=== PATIENT | male | born 1955 | race Caucasian/White ===

== ENCOUNTER 2018-04-26 07:25 | Inpatient (IN) | payer OTHER ==
[~2018-04-26] VITALS: Ht 182.9 cm; Wt 98.0 kg
[2018-04-26 07:25] VITALS: BP_SYST 105
[2018-04-26] MEDS ORDERED: NACL 0.9% 1,000 ML IV ONE (07:30)
[2018-04-26 07:58] LABS: BASOPHILS # (AUTO) 0.1 K/uL (0.0-0.2); BASOPHILS % (AUTO) 0.8 % (0.0-2.0); EOSINOPHILS # (AUTO) 0.2 K/uL (0.0-0.4); EOSINOPHILS % (AUTO) 2.9 % (0.0-4.0); HEMATOCRIT 30.5 % (36-54); HEMOGLOBIN 10.1 g/dL (14.0-18.0); LYMPHOCYTES # (AUTO) 1.1 K/uL (1.0-5.5); LYMPHOCYTES % (AUTO) 16.6 % (20.5-51.5); MEAN CORPUSCULAR HEMOGLOBIN 31 pg (27-31); MEAN CORPUSCULAR HGB CONC 33 % (32-36); MEAN CORPUSCULAR VOLUME 93 fL (79.0-98.0); MONOCYTES # (AUTO) 0.3 K/uL (0.0-1.0); NEUTROPHILS % (AUTO) 74.7 % (40.0-70.0); PLATELET COUNT (AUTO) 149 K/uL (130-430); WHITE BLOOD COUNT (AUTO) 6.7 K/uL (4.8-10.8)
[2018-04-26 08:05] LABS: ANION GAP 6 (5-15); CALCIUM 8.7 mg/dL (8.4-11.0); CHLORIDE 106 mmol/L (98-107); CREATININE 1.12 mg/dL (0.55-1.30); GLUCOSE 136 mg/dL (70-99); POTASSIUM 3.9 mmol/L (3.5-5.1); SODIUM SERUM 140 mmol/L (136-145); UREA NITROGEN, BLOOD 17 mg/dL (8-21)
[2018-04-26 08:08] LABS: GFR AFRICAN AMERICAN 85 mL/min (>90); PROTHROMBIN TIME 9.9 SECS (9.5-12.5)
[2018-04-26 08:11] LABS: ACETAMINOPHEN 9 ug/mL (1-30); ALANINE AMINOTRANSFERASE 14 U/L (12-78); ALBUMIN 3.2 g/dL (3.4-4.8); ASPARTATE AMINOTRANSFERASE 18 U/L (10-37); TOTAL BILIRUBIN 0.3 mg/dL (0.0-1.0)
[2018-04-26 08:13] LABS: ALCOHOL, BLOOD < 3 mg/dL (<10)
[2018-04-26] MEDS ORDERED: NALOXONE HCL 0.4 MG/ML AMP (NARCAN) IVP ONE (09:15)
[2018-04-26 09:42] LABS: BILIRUBIN,URINE NEGATIVE (NEGATIVE); BLOOD, URINE NEGATIVE (NEGATIVE); CLARITY/URINE CLEAR (CLEAR); COLOR,URINE YELLOW (YELLOW); GLUCOSE,URINE NEGATIVE (NEGATIVE); KETONES,URINE NEGATIVE (NEGATIVE); LEUKOCYTE ESTERASE ,URINE NEGATIVE (NEGATIVE); NITRITE, URINE NEGATIVE (NEGATIVE); PH,URINE 5.5 (5.0-8.0); PROTEIN URINE NEGATIVE (NEGATIVE); UROBILINOGEN,URINE 0.2 (0.2-1.0)
[2018-04-26] MEDS ORDERED: LISI-600 PO (09:42)
[2018-04-26] MEDS ORDERED: ALPR1TAB2 PO (09:42)
[2018-04-26] MEDS ORDERED: ASPI-1155 PO (09:42)
[2018-04-26] MEDS ORDERED: HYDR-3925 PO (09:42)
[2018-04-26] MEDS ORDERED: METO-442 PO (09:42)
[2018-04-26] MEDS ORDERED: LOVA40TA75 PO (09:42)
[2018-04-26] MEDS ORDERED: ALBMDI INH (09:42)
[2018-04-26] MEDS ORDERED: PRO20 PO (09:42)
[2018-04-26 09:56] LABS: BENZODIAZEPINE, URINE POSITIVE (NEG <=150); CANNABINOID, URINE POSITIVE (NEG <=50); OPIATE, URINE POSITIVE (NEG <=100); URINE OXYCODONE SCREEN POSITIVE (NEG <=100)
[2018-04-26 09:57] LABS: BARBITURATE, URINE NEGATIVE (NEG <=200); COCAINE, URINE NEGATIVE (NEG <=150); METHAMPHETAMINES SCREEN,URINE NEGATIVE (NEG <=500); PHENCYCLIDINE SCREEN,URINE NEGATIVE (NEG <=25); UR TRICYCLIC ANTIDEPRESSANTS NEGATIVE (NEG <=300); URINE AMPHETAMINE NEGATIVE (NEG <=500); URINE METHADONE NEGATIVE (NEG <=200); URINE PROPOXYPHENE SCREEN NEGATIVE (NEG <=300)
[2018-04-26 11:20] VITALS: BP_SYST 120
[2018-04-26 12:02] VITALS: BP_SYST 120
[2018-04-26] MEDS ORDERED: ALBUTEROL SULFATE 0.083% 2.5 MG/3 ML VIAL.NEB INH PRN (14:45)
[2018-04-26] MEDS ORDERED: IPRATROPIUM BROM 0.5 MG/2.5 ML VIAL.NEB (ATROVENT) INH PRN (14:45)
[2018-04-26] MEDS: IPRATROPIUM BROM 0.5 MG/2.5 ML VIAL.NEB (ATROVENT) INH SCH ×3 (15:00→22:55)
[2018-04-26] MEDS: ALBUTEROL SULFATE 0.083% 2.5 MG/3 ML VIAL.NEB INH SCH ×3 (15:00→22:55)
[2018-04-26 15:23] VITALS: BP_SYST 120
[2018-04-26 16:02] VITALS: BP_SYST 132
[2018-04-26 20:00] VITALS: BP_SYST 113
[2018-04-26] MEDS: METOPROLOL TARTRATE 50 MG TABLET PO SCH (21:59)
[2018-04-27] VITALS (7 sets, daily range): BP systolic 124–153
[2018-04-27] MEDS: ALBUTEROL SULFATE 0.083% 2.5 MG/3 ML VIAL.NEB INH SCH ×6 (03:13→23:00)
[2018-04-27] MEDS: IPRATROPIUM BROM 0.5 MG/2.5 ML VIAL.NEB (ATROVENT) INH SCH ×6 (03:13→23:00)
[2018-04-27] MEDS: LISINOPRIL 20 MG TABLET PO SCH (08:59)
[2018-04-27] MEDS: METOPROLOL TARTRATE 50 MG TABLET PO SCH ×2 (08:59→21:40)
[2018-04-27] MEDS: ASPIRIN 81 MG TAB.CHEW PO SCH (08:59)
[2018-04-27] MEDS: FLUoxetine HCL 20 MG CAPSULE (PROzac) PO SCH (09:00)
[2018-04-27] MEDS ORDERED: LORazepam 2 MG/ML VIAL IVP ONE (11:15)
[2018-04-27] MEDS: SIMVASTATIN 20 MG TABLET PO SCH (17:08)
[2018-04-27] MEDS: MORPHINE 2 MG/ML INJ. SYRINGE IVP PRN ×2 (17:09→21:40)
[2018-04-28 01:52] LABS: LACTATE DEHYDROGENASE 165 U/L (85-227); THYROID STIMULATING HORMONE 0.64 uIu/mL (0.36-3.74)
[2018-04-28] MEDS: MORPHINE 2 MG/ML INJ. SYRINGE IVP PRN ×4 (01:52→15:35)
[2018-04-28] MEDS: IPRATROPIUM BROM 0.5 MG/2.5 ML VIAL.NEB (ATROVENT) INH SCH ×4 (03:00→15:00)
[2018-04-28] MEDS: ALBUTEROL SULFATE 0.083% 2.5 MG/3 ML VIAL.NEB INH SCH ×4 (03:00→15:00)
[2018-04-28 08:12] VITALS: BP_SYST 153
[2018-04-28 08:12] LABS: TOTAL IRON BIND. CAPACITY 276 ug/dL (250-450)
[2018-04-28] MEDS: ASPIRIN 81 MG TAB.CHEW PO SCH (08:21)
[2018-04-28] MEDS: METOPROLOL TARTRATE 50 MG TABLET PO SCH (08:22)
[2018-04-28] MEDS: LISINOPRIL 20 MG TABLET PO SCH (08:22)
[2018-04-28] MEDS: FLUoxetine HCL 20 MG CAPSULE (PROzac) PO SCH (08:23)
[2018-04-28 11:30] VITALS: BP_SYST 140
[2018-04-28 15:37] VITALS: BP_SYST 124
[2018-04-28 17:08] VITALS: BP_SYST 124
[2018-04-28] MEDS: SIMVASTATIN 20 MG TABLET PO SCH (17:52)
[2018-04-29 07:05] LABS: FOLATE (FOLIC ACID) 12.1 ng/mL (>3.0)
== END 2018-04-28 18:50 | disposition home or self-care (01) | DRG 917 ==
LOC: SED 07:25 → SMU 10:19 → STU 11:02
PROVIDERS: ADMIT Internal Medicine Hospice and Palliative Medicine; ATTEND Internal Medicine Hospice and Palliative Medicine
DX: T40.601A Poisoning by unspecified narcotics, accidental (unintentional), initial encounter (principal); G92 Toxic encephalopathy; E87.2 Acidosis; G89.29 Other chronic pain; M54.16 Radiculopathy, lumbar region; J44.9 Chronic obstructive pulmonary disease, unspecified; R07.89 Other chest pain; G47.33 Obstructive sleep apnea (adult) (pediatric); M54.9 Dorsalgia, unspecified; E78.5 Hyperlipidemia, unspecified; F32.9 Major depressive disorder, single episode, unspecified; I10 Essential (primary) hypertension; M79.605 Pain in left leg; Z88.0 Allergy status to penicillin; Z88.8 Allergy status to other drugs, medicaments and biological substances; Z88.1 Allergy status to other antibiotic agents; Z79.82 Long term (current) use of aspirin; Z79.899 Other long term (current) drug therapy; Z86.73 Personal history of transient ischemic attack (TIA), and cerebral infarction without residual deficits; Z82.49 Family history of ischemic heart disease and other diseases of the circulatory system; Y92.89 Other specified places as the place of occurrence of the external cause
CPT/HCPCS: 36415; 36600; 71045; 72148; 80053; 80307; 81003; 82607; 82728; 82746; 82803-TC; 83540-TC; 83550-TC; 83605; 83615-TC; 84443-TC; 84484; 85025; 85610-TC; 85730-TC; 87040-TC; 87086; 93005; 93306; 94640; 94760; 96361; 96374; 96375; 99285; G0480; G0481; G0482; J2060; J2270; J2310; J7613

== ENCOUNTER 2021-12-08 20:36 | Inpatient (IN) | payer OTHER ==
[~2021-12-08] VITALS: Ht 182.9 cm; Wt 84.1 kg
[~2021-12-08 20:36] MED LIST: ALBMDI INH; ALPR1TAB2 PO; ASPI-1155 PO; HYDR-3925 PO; LISI20TA30 PO; LOVA40TA75 PO; METO-442 PO; PRO20 PO
--- NOTE | 2021-12-08 20:36 | NUR ---
PT BIBA LAST KNOWN 1899 PT NOTICED EXPRESSIVE APHASIA AND BLURRED VISION,BUT ARRIVAL ON SEEN NO DEFICIT NOTED, ON ARRIVAL TO ER NO NEURO DEFICIT, BUT MILD FACIAL DROOP ON LT SIDE WHEN HE SMILE AND TOUGUE DEVIATED AT LT SIDE MILDLY, DOUBLE VISION ON RT SIDE.PLACED ON RM3 VSS, AFEBRILE,ENDORSE TO JUSTIN LADD FOR CONTINUITY OF CARE.
[2021-12-08 20:50] VITALS: BP_SYST 148
--- NOTE | 2021-12-08 20:50 | NUR ---
PT BIBA TO ER, WITH COMPLAINTS OF SLURED SPEECH. PT SPOKE TO SOON APX AT 1910 AND SON NOTICED THAT HE WAS NOT SPEAKING HIS USUAL SELF. VS ARE WITHIN NORMAL LIMITS. PT IS IN BED SPEAKING TO NEURO DR VIA MONITOR, BED IS LOWERED, LOCKED AND RAILS UP. WILL CONTINUE TO MONITOR
--- NOTE | 2021-12-08 20:54 | NUR ---
PT TAKEN TO CT
[2021-12-08] MEDS ORDERED: iohexoL 240 mgI/mL, 150 ML INFUS..BTL IV ONE (20:56)
[2021-12-08 21:27] LABS: BASOPHILS # (AUTO) 0.1 K/uL (0.0-0.2); BASOPHILS % (AUTO) 1.2 % (0.0-2.0); EOSINOPHILS # (AUTO) 0.1 K/uL (0.0-0.4); EOSINOPHILS % (AUTO) 2.9 % (0.0-4.0); HEMATOCRIT 39.9 % (36-54); HEMOGLOBIN 13.8 g/dL (14.0-18.0); LYMPHOCYTES # (AUTO) 1.8 K/uL (1.0-5.5); MEAN CORPUSCULAR HEMOGLOBIN 31 pg (27-31); MEAN CORPUSCULAR HGB CONC 35 % (32-36); MEAN CORPUSCULAR VOLUME 89 fL (79.0-98.0); MONOCYTES # (AUTO) 0.4 K/uL (0.0-1.0); MONOCYTES % (AUTO) 8.4 % (1.7-9.3); NEUTROPHILS # (AUTO) 2.6 K/uL (1.8-7.7); NEUTROPHILS % (AUTO) 51.5 % (40.0-70.0); PLATELET COUNT (AUTO) 180 K/uL (130-430); RED BLOOD CELL COUNT(AUTO) 4.47 MIL/uL (4.2-6.2); RED CELL DISTRIBUTION WIDTH 14.4 % (9.0-15.0)
[2021-12-08 21:34] LABS: ANION GAP 9 (5-15); CALCIUM 9.2 mg/dL (8.4-11.0); CHLORIDE 104 mmol/L (98-107); CREATININE 1.22 mg/dL (0.55-1.30); GLUCOSE 133 mg/dL (70-99); SODIUM SERUM 140 mmol/L (136-145); UREA NITROGEN, BLOOD 14 mg/dL (8-21)
[2021-12-08 21:35] LABS: GFR AFRICAN AMERICAN 76 mL/min (>90)
[2021-12-08 21:36] LABS: PROTHROMBIN TIME 10.4 SECS (9.5-12.5)
[2021-12-08 21:42] LABS: ALANINE AMINOTRANSFERASE 18 U/L (12-78); ALBUMIN 3.9 g/dL (3.4-4.8); ASPARTATE AMINOTRANSFERASE 22 U/L (10-37); TOTAL BILIRUBIN 0.5 mg/dL (0.0-1.0)
[2021-12-08] MEDS ORDERED: POTASSIUM CHLORIDE 20 MEQ TAB.PRT.SR PO ONE (21:45)
[2021-12-08] MEDS ORDERED: ASPIRIN 81 MG TAB.CHEW PO ONE (21:45)
[2021-12-08] MEDS ORDERED: ASPIRIN 81 MG TAB.CHEW ONE (21:50)
[2021-12-08] MEDS ORDERED: MORPHINE 4 MG INJ. 4 MG/ML VIAL IVP ONE (22:00)
[2021-12-08] MEDS ORDERED: ONDANSETRON HCL 4 MG/2 ML VIAL IVP ONE (22:00)
--- NOTE | 2021-12-08 23:14 | NUR ---
Admit bed requested Patient will be admitted to care of . Admitted to TELEMETRY unit. Diagnosis [TIA] Inpatient (Yes or No) [YES] Observation (Yes or No) [YES] Orientation concerns or request close to nursing station (Yes or No) [NO] Covid Status [YES] On vent or bipap [NO] Isolation requirements [NO] Needs a sitter [NO] From Home (Yes or if No enter name of facility) [NO] Requires Dialysis (Yes or No) [NO] Med Rec Completed (Yes of No) [NO]
--- NOTE | 2021-12-09 01:38 | NUR ---
CALLED TO GIVE REPORT TO TELE PER HOUSE LAN OSMAN TO DO. WAS ADVICED THAT NURSE WHO WILL TAKE MR [place] WILL CALL ME BACK TO GET REPORT
--- NOTE | 2021-12-09 01:38 | NUR ---
Patient will be admitted to care of DR MOSQUERA. Admitted to unit. Will go to room . Belongings list completed. Complete and up to date summary report printed. SBAR report given to Ken ANDERSON via telephone approved to do so by packing house supervisor Charly ANDERSON with opportunity for questions.
[2021-12-09 01:45] VITALS: BP_SYST 135
--- NOTE | 2021-12-09 01:50 | NUR ---
pt.received via er-dept.[facility] provided pt.report.pt.presents w admit dx;tia.to attend to bed swallow,nih,neuro checks per policy. pt.stated pain;head present.no neuro-deficits present upon arrival initial assessment.call light/telephone placed w/in access of the pt.
[2021-12-09] MEDS ORDERED: ONDANSETRON HCL 4 MG/2 ML VIAL IVP PRN ×2 (02:30→08:00)
[2021-12-09] MEDS ORDERED: MORPHINE 2 MG/ML INJ. SYRINGE IVP PRN ×3 (02:30→08:00)
[2021-12-09] MEDS ORDERED: ZOLPIDEM TARTRATE 5 MG TABLET PO PRN ×2 (02:30→08:00)
[2021-12-09] MEDS ORDERED: NALOXONE HCL 0.4 MG/ML AMP (NARCAN) IVP PRN ×3 (02:30→08:00)
[2021-12-09] MEDS: MORPHINE 4 MG INJ. 4 MG/ML VIAL IVP PRN ×2 (02:51→06:51)
--- NOTE | 2021-12-09 06:58 | NUR ---
pt.requested medication;pain.morphpine:4mg ivp administered.to assess the efficacy of the pain medication per pain mgx protocol.no additional requests posited@this hour.neuro assessment values wnl.
[2021-12-09 08:00] VITALS: BP_SYST 134
[2021-12-09] MEDS ORDERED: MUPIROCIN 2% TOPICAL OINTMENT 22 GM NS PRN (08:00)
[2021-12-09] MEDS ORDERED: MAGNESIUM SULFATE 50 ML IV PRN (08:00)
[2021-12-09] MEDS ORDERED: POTASSIUM CHLORIDE 20 MEQ TAB.PRT.SR PO PRN (08:00)
[2021-12-09] MEDS ORDERED: DOCUSATE SODIUM 100 MG CAPSULE PO PRN (08:00)
[2021-12-09] MEDS ORDERED: LORazepam 2 MG/ML VIAL IVP PRN (08:00)
--- NOTE | 2021-12-09 08:00 | NUR ---
Initial Notes Patient AOx4. No distress noted. Patient on room air, SPo2 is at 100%. Breathing is even and nonlabored. Patient does admit to having a constant headache,last pain med given was prior to start of shift. Will continue to monitor. Patient has breakfast tray and is eating. Safety precautions in place and call light within reach.
--- NOTE | 2021-12-09 08:39 | NUR ---
CONSULTATION PAGED/CALLED Reason for Consultation: [] TIA Person Who was Notified: [] DR Silverio RAMIREZ Consulting Physician: [] DR Silverio RAMIREZ Pilot Boat Captain Specialty: [] NEURO Ordering Physician: [] DR MOSQUERA
[2021-12-09] MEDS: ATORVASTATIN 20 MG TABLET PO SCH (09:00)
[2021-12-09] MEDS: lisinopriL 20 MG TABLET PO SCH (09:00)
[2021-12-09] MEDS: ASPIRIN 81 MG TAB.CHEW PO SCH (09:00)
[2021-12-09] MEDS: METOPROLOL TARTRATE 50 MG TABLET PO SCH ×2 (09:01→20:24)
[2021-12-09] MEDS: FLUoxetine HCL 20 MG CAPSULE (PROzac) PO SCH (09:01)
[2021-12-09] MEDS: ACETAMINOPHEN 325 MG TABLET PO PRN ×2 (09:05→16:55)
--- NOTE | 2021-12-09 09:20 | NUR ---
Notes Patient states still has headache, gave Tylenol. Will continue to monitor.
[2021-12-09] MEDS ORDERED: HYDROmorphone 2 MG TAB PO ONE (11:30)
[2021-12-09] MEDS ORDERED: HYDROmorphone 2 MG TAB PO PRN (11:45)
--- NOTE | 2021-12-09 11:45 | NUR ---
HIGH ALERT NOTE: Called Dr. MORA back at identified within the medical roster to verify physician authenticity.
[2021-12-09 11:50] LABS: BASOPHILS # (AUTO) 0.1 K/uL (0.0-0.2); BASOPHILS % (AUTO) 1.1 % (0.0-2.0); EOSINOPHILS # (AUTO) 0.1 K/uL (0.0-0.4); HEMATOCRIT 39.9 % (36-54); HEMOGLOBIN 13.6 g/dL (14.0-18.0); LYMPHOCYTES # (AUTO) 1.3 K/uL (1.0-5.5); LYMPHOCYTES % (AUTO) 19.9 % (20.5-51.5); MEAN CORPUSCULAR HEMOGLOBIN 30 pg (27-31); MEAN CORPUSCULAR HGB CONC 34 % (32-36); MEAN CORPUSCULAR VOLUME 89 fL (79.0-98.0); MONOCYTES # (AUTO) 0.4 K/uL (0.0-1.0); NEUTROPHILS # (AUTO) 4.6 K/uL (1.8-7.7); PLATELET COUNT (AUTO) 158 K/uL (130-430); RED BLOOD CELL COUNT(AUTO) 4.47 MIL/uL (4.2-6.2); RED CELL DISTRIBUTION WIDTH 14.6 % (9.0-15.0); WHITE BLOOD COUNT (AUTO) 6.6 K/uL (4.8-10.8)
[2021-12-09 12:00] VITALS: BP_SYST 114
[2021-12-09 12:22] LABS: ALBUMIN 3.5 g/dL (3.4-4.8); CALCIUM 8.2 mg/dL (8.4-11.0); CREATININE 1.07 mg/dL (0.55-1.30); POTASSIUM 3.9 mmol/L (3.5-5.1); TOTAL BILIRUBIN 0.5 mg/dL (0.0-1.0)
[2021-12-09] MEDS ORDERED: LORazepam 2 MG/ML VIAL IVP ONE (13:30)
--- NOTE | 2021-12-09 13:30 | NUR ---
HIGH ALERT NOTE: Called Dr. RAMIREZ back at identified within the medical roster to verify physician authenticity.
[2021-12-09] MEDS: HYDROmorphone 2 MG/ML VIAL IVP PRN ×2 (13:52→20:24)
--- NOTE | 2021-12-09 14:00 | NUR ---
Notes Patient rates pain 10/10, repositioning, relaxation, deep breathing, and other pain medications are not alleviating pain. Dr. Olson in room with patient, per MD ordered 2mg of Dilaudid IVP and Ativan 1 mg IVP, 30 minutes prior to going down to MRI. Patient is very claustrophobic. Pain medication was given at 1350. Breathing is even and non labored. No s/s of respiratory distress. Spo2 is 96% on room air. Respiratory rate 16. Will continue to monitor pain.
--- NOTE | 2021-12-09 14:23 | NUR ---
NOTES PATIENT WENT DOWN FOR MRI. ATIVAN WAS GIVEN EARLIER.
[2021-12-09 16:00] VITALS: BP_SYST 115
--- NOTE | 2021-12-09 17:49 | NUR ---
P.T. NOTES P.T. EVAL COMPLETED; REFER TO EVAL FOR DETAILS.
--- NOTE | 2021-12-09 18:55 | NUR ---
Closing notes Patient eating dinner. Patient requested IV to change site because he feels uncomfortable when he repositions himself. Patient has had constant headache during shift, last pain med given was Tylenol at 1655, he received Dilaudid prior, at 1350. Will endorse pain management to incoming nurse. No s/s of respiratory distress. No SOB. Breathing is even and non labored. Spo2 ranges between 95-98%. Safety precautions in place and call light within reach.
[2021-12-09 19:50] VITALS: BP_SYST 103
--- NOTE | 2021-12-09 19:50 | NUR ---
PM ASSESSMENT; -Pt is a/o4,resting in bed. Pt is c/o headache. Pain meds isn't due until 1999, pt verbalized understanding. Discussed poc,safety measures, pain mgmt, pt verbalized understanding. Pt is on telemetry, a monitor shows bradycardia 56-58 bpm, pt denies any chest pain. IV site of RAC patent after flushed w/ NS, drsg cdi. Educated pt safety measures regarding how to use call light for assistance or needs to get out of bed, pt verbalized understanding. Pt is able to use call light for assistance or pain mgmt. Fall precaution in place. Pt denies any chest pain,sob,or any acute distress. Call light w/in reach, side rails x2. Cont to monitor pt.
--- NOTE | 2021-12-09 20:24 | NUR ---
PAIN MEDS GIVEN; -Pt is c/o 03/08 sharp headache, gave Dilaudid IVP. Will reassess pain level w/in 30m mins. Call light w/in reach. All safety measures in place. Cont to monitor pt.
[2021-12-09] MEDS ORDERED: ATORVASTATIN 20 MG TABLET PO SCH (21:00)
--- NOTE | 2021-12-09 22:10 | NUR ---
ROUNDS; -Pt is asleep. NO s/s any sob or any acute distress noted. Side rails x2, Call light w/in reach. All safety measures in place. Cont to monitor pt.
[2021-12-10 01:15] VITALS: BP_SYST 118
--- NOTE | 2021-12-10 01:20 | NUR ---
CONSULTATION PAGED/CALLED Reason for Consultation: TIA Person Who was Notified: DR PEREZ ALREADY HAD PUT ORDERS Consulting Physician: Web Operations Specialist Specialty: Ordering Physician: DONITA
[2021-12-10] MEDS: HYDROmorphone 2 MG/ML VIAL IVP PRN ×3 (02:38→15:56)
--- NOTE | 2021-12-10 02:38 | NUR ---
NOTES; PAIN MGMT -Pt awoke up and pt c/o of headache and back of neck 8/10 pressure pain,gave Dilaudid IVP for pain mgmt. Will reassess pain level w/in 30 mins. All safety measures in place, side rails x2, Call light w/in reach. Cont to monitor pt.
--- NOTE | 2021-12-10 04:12 | NUR ---
ROUNDS; -Pt awakes, gave snack and pudding upon pt's request. Pt denies any pain,chest pain, sob or any acute distress. Side rails x2, Call light w/in reach. All safety measures in place. Cont to monitor pt.
--- NOTE | 2021-12-10 06:23 | NUR ---
CLOSING NOTES; -Pt is resting in bed. NO s/s any chest pain,sob,or any acute distress noted. IV site of RAC patent drsg cdi. Fall precaution in place. Call light w/in reach, side rails x2. Will endorse to next nurse to cont care.
--- NOTE | 2021-12-10 07:30 | NUR ---
OPENING NOTE Patient laying in bed resting, no sign of distress. Patient complaining of constant pain in his neck and head. Patient aware of when he will be able to receive his next dose of pain medication. IV site is clean, dry, intact, and saline locked. Updated patient on his plan of care for the day. All needs met at this time and safety checks made.
[2021-12-10 07:46] LABS: EOSINOPHILS # (AUTO) 0.3 K/uL (0.0-0.4); HEMATOCRIT 40.4 % (36-54); HEMOGLOBIN 13.8 g/dL (14.0-18.0); LYMPHOCYTES # (AUTO) 1.3 K/uL (1.0-5.5); LYMPHOCYTES % (AUTO) 25.8 % (20.5-51.5); MEAN CORPUSCULAR HEMOGLOBIN 31 pg (27-31); MEAN CORPUSCULAR HGB CONC 34 % (32-36); MEAN CORPUSCULAR VOLUME 89 fL (79.0-98.0); MONOCYTES # (AUTO) 0.3 K/uL (0.0-1.0); MONOCYTES % (AUTO) 6.2 % (1.7-9.3); PLATELET COUNT (AUTO) 169 K/uL (130-430); RED BLOOD CELL COUNT(AUTO) 4.53 MIL/uL (4.2-6.2); RED CELL DISTRIBUTION WIDTH 14.5 % (9.0-15.0); WHITE BLOOD COUNT (AUTO) 5.1 K/uL (4.8-10.8)
[2021-12-10 07:58] LABS: NEUTROPHILS % (AUTO) 62.8 % (40.0-70.0)
[2021-12-10 07:59] LABS: BASOPHILS % (AUTO) 0.2 % (0.0-2.0); NEUTROPHILS # (AUTO) 3.2 K/uL (1.8-7.7)
[2021-12-10 08:00] VITALS: BP_SYST 99
[2021-12-10 08:01] LABS: CALCIUM 8.5 mg/dL (8.4-11.0); PHOSPHORUS 3.6 mg/dL (2.7-4.5); POTASSIUM 4.3 mmol/L (3.5-5.1)
[2021-12-10] MEDS ORDERED: NITROGLYCERIN 0.4 MG TAB.SUBL SL PRN (08:30)
--- NOTE | 2021-12-10 08:37 | NUR ---
CHEST PAIN Patient complaining of chest pain. States "it feels like someone is sitting on my chest". Dr Lane aware and in to see the patient. Patient received 1 tab of Nitrostat. Denies any more chest pain.
[2021-12-10] MEDS: ATORVASTATIN 20 MG TABLET PO SCH (08:40)
[2021-12-10] MEDS: ASPIRIN 81 MG TAB.CHEW PO SCH (08:40)
[2021-12-10] MEDS: lisinopriL 20 MG TABLET PO SCH (08:41)
[2021-12-10] MEDS: FLUoxetine HCL 20 MG CAPSULE (PROzac) PO SCH (08:41)
[2021-12-10] MEDS: METOPROLOL TARTRATE 50 MG TABLET PO SCH (09:00)
[2021-12-10 09:25] VITALS: BP_SYST 114
[2021-12-10] MEDS ORDERED: HYDR-3925 PO (10:36)
--- NOTE | 2021-12-10 11:34 | NUR ---
CLEARED FOR DISCHARGE Per Dr South, patient has been cleared by Neuro and Cardio for discharge.
[2021-12-10 12:00] VITALS: BP_SYST 108
[2021-12-10 13:01] VITALS: BP_SYST 108
--- NOTE | 2021-12-10 17:15 | NUR ---
D/C Patient Patient given medication reconciliation form and D/C instructions. Exit Care provided. Patient verbalized understanding. MD discussed with patient the results and treatment provided. Ambulatory with steady gait for discharge to home. Patient in stable condition, ID band removed. IV catheter removed, intact and dressing applied, no active bleeding. Patient aware of where he can pickling operator his new prescription. Patient educated on pain management. All belongings sent with patient. Patient discharged to home via private auto with son.
== END 2021-12-10 17:15 | disposition home health service (06) | DRG 69 ==
LOC: SED 20:36 → STU 23:10
PROVIDERS: ADMIT General Practice; ATTEND Internal Medicine Hospice and Palliative Medicine
DX: G45.9 Transient cerebral ischemic attack, unspecified (principal); I10 Essential (primary) hypertension; E78.5 Hyperlipidemia, unspecified; F32.A Depression, unspecified; G89.29 Other chronic pain; G47.00 Insomnia, unspecified; Z20.822 Contact with and (suspected) exposure to COVID-19; Z88.0 Allergy status to penicillin; Z88.8 Allergy status to other drugs, medicaments and biological substances; Z86.73 Personal history of transient ischemic attack (TIA), and cerebral infarction without residual deficits; Z82.41 Family history of sudden cardiac death; Z79.899 Other long term (current) drug therapy; Z79.82 Long term (current) use of aspirin; Z79.891 Long term (current) use of opiate analgesic
CPT/HCPCS: 36415; 70450-TC; 70551; 71045; 76376; 80048; 80053; 83036; 83735; 84100; 84484; 85025; 85610-TC; 85730-TC; 86886; 86900; 86901; 93005; 93306; 93880; 96374; 96375; 97163-GP; 99291; 99292; G0378; J1170; J2060; J2270; J2405; Q9966

== ENCOUNTER 2023-02-20 11:55 | Emergency (ER) | payer OTHER ==
[~2023-02-20] VITALS: Ht 182.9 cm; Wt 101.2 kg
[2023-02-20 12:09] VITALS: BP_SYST 141; PULSE 58; RESP 18; TEMP 97.7; O2SAT 100
[2023-02-20] MEDS ORDERED: ONDANSETRON HCL 4 MG/2 ML VIAL IVP ONE (12:15)
[2023-02-20] MEDS ORDERED: NACL 0.9% 1,000 ML IV ONE (12:15)
[2023-02-20] MEDS ORDERED: MORPHINE 4 MG INJ. 4 MG/ML VIAL IVP ONE (12:15)
[2023-02-20 12:40] LABS: BASOPHILS % (AUTO) 0.9 % (0.0-2.0); EOSINOPHILS # (AUTO) 0.2 K/uL (0.0-0.4); EOSINOPHILS % (AUTO) 3.5 % (0.0-4.0); HEMATOCRIT 40.3 % (36-54); HEMOGLOBIN 13.4 g/dL (14.0-18.0); LYMPHOCYTES # (AUTO) 1.5 K/uL (1.0-5.5); LYMPHOCYTES % (AUTO) 28.3 % (20.5-51.5); MEAN CORPUSCULAR HEMOGLOBIN 30 pg (27-31); MEAN CORPUSCULAR HGB CONC 33 % (32-36); MEAN CORPUSCULAR VOLUME 89 fL (79.0-98.0); MONOCYTES # (AUTO) 0.5 K/uL (0.0-1.0); MONOCYTES % (AUTO) 10.2 % (1.7-9.3); NEUTROPHILS # (AUTO) 3.1 K/uL (1.8-7.7); NEUTROPHILS % (AUTO) 57.1 % (40.0-70.0); PLATELET COUNT (AUTO) 177 K/uL (130-430); RED BLOOD CELL COUNT(AUTO) 4.51 MIL/uL (4.2-6.2); RED CELL DISTRIBUTION WIDTH 14.1 % (9.0-15.0); WHITE BLOOD COUNT (AUTO) 5.4 K/uL (4.8-10.8)
[2023-02-20 12:53] LABS: ANION GAP 7 (5-15); CALCIUM 8.4 mg/dL (8.4-11.0); CARBON DIOXIDE 29 mmol/L (23-29); CHLORIDE 102 mmol/L (98-107); CREATININE 1.08 mg/dL (0.55-1.30); GFR AFRICAN AMERICAN 87 mL/min (>90); GLUCOSE 87 mg/dL (74-106); POTASSIUM 3.7 mmol/L (3.5-5.1); SODIUM SERUM 138 mmol/L (136-145); UREA NITROGEN, BLOOD 10 mg/dL (8-21)
[2023-02-20 12:54] LABS: GFR NON AFRICAN-AMERICAN 72 mL/min (>90)
[2023-02-20 13:01] LABS: ALANINE AMINOTRANSFERASE 25 U/L (12-78); ALBUMIN 3.6 g/dL (3.4-4.8); ASPARTATE AMINOTRANSFERASE 31 U/L (10-37); LIPASE 110 U/L (73-393); TOTAL BILIRUBIN 0.4 mg/dL (0.0-1.0); TOTAL PROTEIN, SERUM 6.7 g/dL (6.4-8.3)
[2023-02-20] MEDS ORDERED: iohexoL 350 mgI/mL, 100 ML INFUS..BTL IV ONE (13:21)
[2023-02-20] MEDS ORDERED: MORPHINE 2 MG/ML INJ. SYRINGE IVP ONE (14:15)
[2023-02-20] MEDS ORDERED: LORazepam 2 MG/ML VIAL IVP ONE (14:15)
[2023-02-20 14:42] LABS: BILIRUBIN,URINE NEGATIVE (NEGATIVE); BLOOD, URINE NEGATIVE (NEGATIVE); CLARITY/URINE CLEAR (CLEAR); COLOR,URINE YELLOW (YELLOW); GLUCOSE,URINE NEGATIVE (NEGATIVE); KETONES,URINE NEGATIVE (NEGATIVE); LEUKOCYTE ESTERASE ,URINE NEGATIVE (NEGATIVE); NITRITE, URINE NEGATIVE (NEGATIVE); PROTEIN URINE NEGATIVE (NEGATIVE); UROBILINOGEN,URINE 0.2 (0.2-1.0)
[2023-02-20 17:48] VITALS: BP_SYST 113; PULSE 52; RESP 16; TEMP 97.7; O2SAT 100
== END 2023-02-20 17:30 | disposition home or self-care (01) ==
LOC: SED 11:55
DX: M51.36 Other intervertebral disc degeneration, lumbar region (principal); M50.30 Other cervical disc degeneration, unspecified cervical region; I77.810 Thoracic aortic ectasia; I10 Essential (primary) hypertension; Z88.0 Allergy status to penicillin; Z88.1 Allergy status to other antibiotic agents; Z88.8 Allergy status to other drugs, medicaments and biological substances; Z79.899 Other long term (current) drug therapy
CPT/HCPCS: 99285; 72141; 71275; 96374; 71045; 96375; 96361; 80053; 83880; 83690; 85025; 84484; 36415; 93005; 74175; 72148; 81003; 96376; 72191; 76376; Q9967; J2060; J2405; J2270 ×2; J7030